=== PATIENT | male | born 1995 | race Caucasian/White ===

== ENCOUNTER 2018-08-14 16:38 | Emergency (ER) | payer SELFPAY ==
[~2018-08-14] VITALS: Ht 175.3 cm; Wt 78.0 kg
[2018-08-14] MEDS ORDERED: SODIUM CHLORIDE 0.9% 1,000 ML IV ONE (18:30)
[2018-08-14 19:15] VITALS: BP 121/57
== END 2018-08-14 19:30 | disposition home or self-care (01) ==
LOC: ER 17:11
DX: F15.10 Other stimulant abuse, uncomplicated (principal); F10.20 Alcohol dependence, uncomplicated
CPT/HCPCS: 71045; 99283; J7030; 80305